=== PATIENT | female | born 1975 | race Caucasian/White ===

== ENCOUNTER 2019-09-23 19:01 | Emergency (ER) | payer MEDICARE ==
[~2019-09-23] VITALS: Ht 165.1 cm; Wt 65.8 kg
--- NOTE | 2019-09-23 19:36 | NUR ---
pt resting on gurney, monitors applied, siderails up x2, call light within reach
[2019-09-23] MEDS ORDERED: OXYC5CAP2 PO (19:57)
[2019-09-23] MEDS ORDERED: LEVO88TA43 PO (19:57)
[2019-09-23] MEDS ORDERED: CITA40TA12 PO (19:57)
[2019-09-23] MEDS ORDERED: NAPR220C2 PO (19:59)
[2019-09-23] MEDS ORDERED: DIAZ2TAB PO (19:59)
[2019-09-23] MEDS ORDERED: GABA300C PO (19:59)
[2019-09-23] MEDS ORDERED: TRAM50TA2 PO (19:59)
[2019-09-23] MEDS ORDERED: HYDROmorphone 1 MG/ML, 1ML INJ IM ONE (20:00)
[2019-09-23] MEDS ORDERED: ONDANSETRON ODT 4 MG PO ONE (20:00)
[2019-09-23] MEDS ORDERED: ONDANSETRON ODT 4 MG ONE (20:02)
[2019-09-23] MEDS ORDERED: HYDROmorphone 1 MG/ML, 1ML INJ ONE (20:02)
--- NOTE | 2019-09-23 20:05 | NUR ---
PT TO CT
--- NOTE | 2019-09-23 20:18 | NUR ---
PT MEDICATED PER MAR Addendum: 09/23/19 at 2019 by JESUS PT RESTING ON GURNEY, MONITORS IN PLACE, PT REFUSING TO URINATE, STATED " I JUST WENT BEFORE I CAME, I CAN NOT GO RIGHT NOW".
[2019-09-23 20:57] LABS: BASOPHILS # (AUTO) 0.01 x10^3/uL (0-0.1); BASOPHILS % (AUTO) 0 % (0-1); EOSINOPHILS # (AUTO) 0.15 x10^3/uL (0-0.4); EOSINOPHILS % (AUTO) 2 % (1-7); LYMPHOCYTES % (AUTO) 26 % (22-44); MD NO; MEAN CORPUSCULAR HEMOGLOBIN 29.9 pg (27.0-34.8); MEAN CORPUSCULAR HGB CONC 33.4 g/dL (32.4-35.8); MEAN CORPUSCULAR VOLUME 89.6 fL (80-100); MEAN PLATELET VOLUME 7.7 fL (7.4-10.4); MONOCYTES # (AUTO) 0.25 x10^3/uL (0.2-0.8); MONOCYTES % (AUTO) 4 % (2-9); NEUTROPHILS # (AUTO) 4.78 x10^3/uL (1.8-6.8); NEUTROPHILS % (AUTO) 68 % (42-75); PLATELET COUNT 287 x10^3/uL (130-400); RED BLOOD COUNT 4.31 x10^6/uL (3.82-5.3); RED CELL DISTRIBUTION WIDTH 13.4 % (9.6-15.2)
[2019-09-23 21:07] LABS: ALANINE AMINOTRANSFERASE 44 U/L (12-78); ALBUMIN 3.7 g/dL (3.4-5.0); ANION GAP 5 mmol/L (5-15); CALCIUM 8.8 mg/dL (8.5-10.1); CHLORIDE 105 mmol/L (98-107); CREATININE 0.72 mg/dL (0.55-1.02)
[2019-09-23 21:10] LABS: ALKALINE PHOSPHATASE 65 U/L (45-117); BILIRUBIN,TOTAL 0.3 mg/dL (0.2-1.0); TOTAL PROTEIN 6.9 g/dL (6.4-8.2)
[2019-09-23 21:18] VITALS: BP 110/72
== END 2019-09-23 22:06 | disposition home or self-care (01) ==
LOC: ED 21:40
DX: K59.00 Constipation, unspecified (principal); R10.31 Right lower quadrant pain; R94.31 Abnormal electrocardiogram [ECG] [EKG]
CPT/HCPCS: 36415; 74176; 80053; 83690; 85025; 93005; 96372; 99285; J1170; Q0162